=== PATIENT | female | born 1980 | race Caucasian/White ===

== ENCOUNTER 2020-06-26 20:03 | Emergency (ER) | payer OTHER ==
[~2020-06-26] VITALS: Ht 162.6 cm; Wt 206.4 kg
[~2020-06-26 20:03] MED LIST: AMOXICILLIN500 M1 PO; AUGMENTIN 875875 M1 PO; DELSYM30 MG/5 M1 PO; DIFLUCAN150 MG PO; KEFLEX500 MG PO; NORCO 5-325 TA1 EACH PO; PERCOCET 5-3251 EACH PO; ROBITUSSIN15 MG/5 M1 PO; TESSALON PERLE100 MG PO
[2020-06-26] MEDS ORDERED: LIPITOR 20 MG T20 M1 PO (20:37)
[2020-06-26] MEDS ORDERED: LISINOPRIL2.5 M1 PO (20:38)
[2020-06-26] MEDS ORDERED: TRULICITY1.5 MG/0.5 SUBQ (21:20)
[2020-06-26] MEDS ORDERED: CELEXA 20 MG TA20 MG PO (21:20)
[2020-06-26] MEDS ORDERED: TOPROL XL50 MG PO (21:21)
[2020-06-26] MEDS ORDERED: ALPRAZOLAM XR3 MG PO (21:21)
[2020-06-26] MEDS ORDERED: HYDROCODON-ACE1 EAC8 PO (22:15)
[2020-06-26] MEDS ORDERED: ZOFRAN ODT4 MG PO (22:15)
[2020-06-26] MEDS ORDERED: FLEXERIL PO (22:15)
[2020-06-26 23:42] VITALS: BP 128/62
== END 2020-06-26 23:43 | disposition home or self-care (01) ==
LOC: M.ERS 20:03
DX: S06.0X0A Concussion without loss of consciousness, initial encounter (principal); S50.12XA Contusion of left forearm, initial encounter; S40.021A Contusion of right upper arm, initial encounter; Z98.890 Other specified postprocedural states; Z77.22 Contact with and (suspected) exposure to environmental tobacco smoke (acute) (chronic); W18.39XA Other fall on same level, initial encounter; Y93.89 Activity, other specified; Y92.89 Other specified places as the place of occurrence of the external cause; Y99.8 Other external cause status